=== PATIENT | female | born 1980 | race Caucasian/White ===

== ENCOUNTER 2017-11-23 06:01 | Observation (INO) | payer OTHER ==
[~2017-11-23] VITALS: Ht 149.9 cm; Wt 47.5 kg
[~2017-11-23 06:01] MED LIST: ALBU6.7H INH; BENZ100 PO; COMMODE 3-IN-11 MIS; HYDR-3583 PO; LIDO1ADH4 T-DERMAL; MAGN30S PO; METH500T3 PO; PERI PO; PRED20 PO; WALKER WHEELS/F1 MIS; XARE10TA PO
[2017-11-23] MEDS ORDERED: SODIUM CHLORID 0.9% 500 ML IV PRN (06:30)
[2017-11-23] MEDS ORDERED: CHLORHEXIDINE GLUCONATE 2 % 1 PACK (2 CLOTHS) TOPICAL PRN (06:30)
[2017-11-23] MEDS ORDERED: ceFAZolin 1,000 MG/NS 100 ML IV SCH ×2 (06:30)
[2017-11-23] MEDS ORDERED: VANCOMYCIN 1000 MG/NS 250 ML (for <70 kg) IV SCH ×2 (06:30)
[2017-11-23] MEDS ORDERED: CHLORHEXIDINE GLUCONATE 4% SOLN 120 ML BTL TOPICAL SCH (06:30)
[2017-11-23] MEDS ORDERED: METOPROLOL TARTRATE 25 MG TAB PO PRN (06:30)
[2017-11-23] MEDS ORDERED: INSULIN HUMAN REGULAR 1,000 UNITS/10 ML VIAL SQ PRN (06:30)
[2017-11-23] MEDS ORDERED: LACTATED RINGER'S 1000 ML IV PRN (06:30)
[2017-11-23] MEDS ORDERED: POVIDONE IODINE 5% (ANTISEPSIS KIT) 4 APPLICATIONS EACH NARE PRN (06:30)
[2017-11-23] MEDS ORDERED: VANCOMYCIN HCL 1000 MG VIAL ONE (06:42)
[2017-11-23] MEDS ORDERED: GENTAMICIN SULFATE 80 MG/2 ML VIAL ONE ×2 (06:42→06:58)
[2017-11-23] MEDS ORDERED: ceFAZolin 2 GM PREMIX 0 ML ONE (06:42)
[2017-11-23] MEDS ORDERED: MORPHINE SULFATE 4 MG/ML INJ IV PUSH PRN (08:30)
[2017-11-23] MEDS ORDERED: ONDANSETRON HCL 4 MG/2 ML VIAL IVP PRN (08:30)
--- NOTE | 2017-11-23 08:31 | PD.OP ---
cc: Tahir Quintana MD Operative Report Date of Surgery: Nov 23, 2017 Preoperative Diagnosis: Displaced right clavicle fracture with skin breakdown Postoperative Diagnosis: Procedure: Irrigation and debridement right clavicle, open reduction internal fixation right clavicle Anesthesia: Gen. Surgeon: Tahir Quintana Disability Attorney(s): AUDI Crawley PA-C The surgical procedure was assisted by my physician assistant director of financial aid. My P.A. presence was necessary throughout this case for the manipulation and positioning of the surgical extremity. My P.A. was assisting me throughout the duration of this procedure. The skill set of a physician assistant director of financial aid was medically necessary to complete this procedure. During the surgical case the instructor adjunct surgical technician was working at the back table and the physician assistant director of financial aid was directly assisting me. Operation and Findings: Patient was seen and evaluated preoperatively. Patient was initially found to have a mildly displaced clavicle fracture. She was treated nonoperatively for this injury. She has subsequently been in senior care. She presented to clinic last week with tenting of the skin and early skin breakdown. The risks and benefits of surgical and nonsurgical options were discussed in detail and informed consent was obtained for surgery. Patient was brought to the operating room and placed on or table. IV sedation and GETA were administered by anesthesiologist. Antibiotics were given prior to incision. Operative arm and shoulder were prepped with alcohol followed by Hibiclens and draped usual sterile fashion. Timeout procedure was performed. Procedure began with a 4 inch incision over the anterior clavicle. The area of skin opening was completely excised. Cultures were obtained from the fracture site. Subcutaneous tissue was dissected with Bovie. The fracture was now visualized. Soft tissue was retracted. Fracture was cleaned with curettes. At this point attention was turned towards debridement of the fracture and clavicle. A portion of the prominent clavicle fragment was excised with rongeurs. This bone was sent for culture. After thorough debridement of soft tissue and bone the wound was thoroughly irrigated with sterile saline. Next attention was turned to reduction and fixation of the fracture. Attention was now turned to reduction. Gentle traction was applied and fracture tenaculums were used to reduce the fracture. Fracture was manipulated to achieve excellent reduction. Multiplanar fluoroscopy confirmed well aligned fracture. K wires were used to hold provisional fixation. A ITS clavicle plate was selected. Plate was provisionally held in place K wires. 3.5 cortical screws were used to compress plate to bone. Fluoroscopy confirmed appropriate plate placement and fracture reduction. Multiple screws were placed on each side of the fracture. All Screws were predrilled and premeasured for appropriate length. Care was taken to avoid injury to neurovascular structures. Final fluoroscopy revealed well aligned fracture with well-placed hardware. Wound was thoroughly irrigated. Fascia was closed with #0 PDS, subcutaneous tissues closed with 3-0 PDS, and skin was closed with alyx. Sterile dressings were applied. Patient was placed into a sling. Patient was awakened and transferred to recovery in stable condition. Needle and sponge counts were correct. Tahir Quintana MD Nov 23, 2017 08:30
[2017-11-23] MEDS ORDERED: *morphine SULFATE 4 MG/ML PERIprocedure ONLY ONE ×2 (08:53→09:02)
[2017-11-23] MEDS: LACTATED RINGER'S 1000 ML INJ 1,000 ML IV SCH (08:55)
[2017-11-23] MEDS ORDERED: MIDAZOLAM HCL 2 MG/2 ML VIAL ONE (08:59)
[2017-11-23] MEDS ORDERED: ACETAMINOPHEN 1000 MG/100 ML 100 ML IV ONE (08:59)
[2017-11-23] MEDS ORDERED: *morphine SULFATE 10 MG/ML PERIprocedure ONLY ONE (09:10)
--- NOTE | 2017-11-23 09:40 | RADRPT ---
EXAM DATE/TIME: 11/23/2017 08:10 [facility] COMPARISON: No previous studies available for comparison. INDICATIONS : Open reduction internal fixation right clavicle. MEDICAL HISTORY : None. SURGICAL HISTORY : None. ENCOUNTER: Initial ACUITY: 1 day PAIN SCORE: Non-responsive. LOCATION: Right Clavicle FINDINGS: Images and recorded digitally in the operating room using C-arm during placement of a right clavicula r plate. CONCLUSION: Intraoperative images. Bradford Barnes MD on November 23, 2017 at 9:38 Board Certified Radiologist. This report was verified electronically.
[2017-11-23] MEDS ORDERED: DO NOT ADM ANY ANTICOAGULANT DRUGS PRN (09:45)
[2017-11-23] MEDS ORDERED: ERGOCALCIFEROL (VIT D2) 50,000 UNIT CAP PO SCH (10:00)
[2017-11-23] MEDS: ACETAMINOPHEN/HYDROcodone 325 MG/10 MG TAB PO PRN ×3 (11:32→20:48)
[2017-11-23] MEDS ORDERED: DEXAMETHASONE SOD PHOS 4 MG/ML VIAL IV ONE (12:00)
[2017-11-23] MEDS ORDERED: NEOSTIGMINE 5 MG/5 ML SYRINGE IV PUSH ONE (12:00)
[2017-11-23] MEDS ORDERED: ceFAZolin INJ 1,000 MG VIAL IV ONE (12:00)
[2017-11-23] MEDS ORDERED: PHENYLEPH/NS 1000 MCG/10 ML SYR IV ONE (12:00)
[2017-11-23] MEDS ORDERED: ONDANSETRON HCL 4 MG/2 ML VIAL IV ONE (12:00)
[2017-11-23] MEDS ORDERED: GLYCOPYRROLATE 1 MG/5 ML SYRINGE IV PUSH ONE (12:00)
[2017-11-23] MEDS ORDERED: PROPOFOL 200 MG/20 ML AMP IV ONE (12:00)
[2017-11-23] MEDS ORDERED: LIDOCAINE HCL 1% PF 5 ML SYRINGE OTHER ONE (12:00)
[2017-11-23] MEDS ORDERED: ePHEDrine/NS 25 MG/5 ML SYRINGE IV ONE (12:00)
[2017-11-23] MEDS ORDERED: ROCURONIUM INJ 50 MG/5 ML SYRINGE IV PUSH ONE (12:00)
[2017-11-23 13:00] VITALS: BP 109/62; PULSE 61; RESP 18; TEMP 97.3; O2SAT 98
[2017-11-23] MEDS: CALCIUM/VITAMIN D 250 MG/125 U TAB PO SCH ×3 (13:00→17:29)
[2017-11-23] MEDS: CHOLECALCIFEROL (VIT D3) 1000 UNIT TAB PO SCH (13:16)
[2017-11-23] MEDS: DOCUSATE SODIUM 50 MG/SENNA 8.6 MG TAB PO SCH ×2 (13:16→20:48)
[2017-11-23] MEDS: ceFAZolin 2 GM PREMIX 50 ML IV SCH ×2 (13:19→22:44)
[2017-11-23 16:00] VITALS: BP 108/62; PULSE 67; RESP 17; TEMP 97.5; O2SAT 99
[2017-11-23] MEDS: VANCOMYCIN INJ 1,000 MG in SODIUM CHLOR 0.9% 250 ML INJ 250 ML IV SCH (17:29)
[2017-11-23 20:07] VITALS: BP 105/57; PULSE 83; RESP 17; TEMP 97.6; O2SAT 98
[2017-11-24] VITALS (8 sets, daily range): BP systolic 94–154; BP diastolic 51–98; PULSE 71–88; RESP 17–20; TEMP 97.4–98.9; O2SAT 96–98
[2017-11-24] MEDS: ACETAMINOPHEN/HYDROcodone 325 MG/10 MG TAB PO PRN ×3 (02:24→19:17)
[2017-11-24] MEDS: ceFAZolin 2 GM PREMIX 50 ML IV SCH ×3 (05:21→22:43)
[2017-11-24] MEDS: VANCOMYCIN INJ 1,000 MG in SODIUM CHLOR 0.9% 250 ML INJ 250 ML IV SCH ×2 (05:22→18:00)
[2017-11-24] MEDS ORDERED: HYDR-3583 PO (06:14)
--- NOTE | 2017-11-24 06:33 | PD.ORT.PN ---
Subjective Subjective Remarks POD 1 s/p I&D with ORIF of right clavicle nurse reports significant drainage yesterday and last night. they changed and reinforced bandages. Objective Vitals Vital Signs Date Time Temp Pulse Resp B/P (MAP) Pulse Ox O2 Delivery O2 Flow Rate FiO2 11/24/17 03:28 18 11/24/17 03:15 98.0 84 17 97/53 (68) 97 11/24/17 00:45 97.8 86 17 154/98 (116) 96 11/23/17 22:01 Room Air 11/23/17 20:07 97.6 83 17 105/57 (73) 98 11/23/17 16:00 97.5 67 17 108/62 (77) 99 11/23/17 13:48 18 11/23/17 13:00 97.3 61 18 109/62 (78) 98 11/23/17 12:00 98.5 66 21 105/55 (72) 99 Room Air 11/23/17 11:00 63 20 109/64 (79) 100 Room Air 11/23/17 10:00 59 21 98/54 (69) 99 Room Air 11/23/17 09:30 60 16 101/58 (72) 97 Room Air 11/23/17 09:15 64 14 107/59 (75) 100 Room Air 11/23/17 09:05 Room Air 11/23/17 09:00 65 16 114/55 (74) 100 Nasal Cannula 2 11/23/17 08:50 97.5 70 17 111/57 (75) 100 Nasal Cannula 2 11/23/17 06:44 98.3 69 20 99/61 (74) 99 I/O 11/23/17 11/23/17 11/23/17 11/24/17 11/24/17 11/24/17 07:00 15:00 23:00 07:00 15:00 23:00 Intake Total 1770 ml 480 ml 480 ml Output Total 25 ml Balance 1745 ml 480 ml 480 ml Intake Oral 720 ml 480 ml 480 ml IV Total 250 ml Other 800 ml Output Estimated Blood Loss 25 ml # Voids 1 2 3 # Bowel Movements 0 0 Objective Remarks RUE: bulky dressing in place. clean and dry. intact. NVi distally. Assessment & Plan Assessment and Plan 1) Right Clavicle Fx s/p ORIF - POD 1 -NWB -maintain sling -plan for dressing change tomorrow. ok to change if becomes saturated -awaiting cultures -will need 6 weeks of Abx. will have to hold discharge til cultures finalized. Frank Jernigan/First Melba RÍOS Nov 24, 2017 06:33
[2017-11-24] MEDS: CHOLECALCIFEROL (VIT D3) 1000 UNIT TAB PO SCH (08:39)
[2017-11-24] MEDS: DOCUSATE SODIUM 50 MG/SENNA 8.6 MG TAB PO SCH ×2 (08:39→20:39)
[2017-11-24] MEDS: CALCIUM/VITAMIN D 250 MG/125 U TAB PO SCH ×3 (08:39→18:10)
[2017-11-24] MEDS: LACTATED RINGER'S 1000 ML INJ 1,000 ML IV SCH (10:40)
[2017-11-25] VITALS: BP 94/53; PULSE 73; RESP 16; TEMP 97.4; O2SAT 98
[2017-11-25] MEDS: ACETAMINOPHEN/HYDROcodone 325 MG/10 MG TAB PO PRN ×2 (03:35→08:42)
[2017-11-25] MEDS: VANCOMYCIN INJ 1,000 MG in SODIUM CHLOR 0.9% 250 ML INJ 250 ML IV SCH (05:57)
[2017-11-25] MEDS: ceFAZolin 2 GM PREMIX 50 ML IV SCH (05:57)
[2017-11-25 08:00] VITALS: BP 93/54; PULSE 67; RESP 16; TEMP 97.5; O2SAT 99
[2017-11-25] MEDS: CALCIUM/VITAMIN D 250 MG/125 U TAB PO SCH ×2 (08:42→12:50)
[2017-11-25] MEDS: CHOLECALCIFEROL (VIT D3) 1000 UNIT TAB PO SCH (08:42)
[2017-11-25] MEDS: DOCUSATE SODIUM 50 MG/SENNA 8.6 MG TAB PO SCH (08:42)
[2017-11-25] MEDS: LACTATED RINGER'S 1000 ML INJ 1,000 ML IV SCH (09:45)
[2017-11-25] MEDS ORDERED: CEPH-460 PO (11:19)
--- NOTE | 2017-11-25 11:23 | PD.ORT.PN ---
Subjective Subjective Remarks POD 2 s/p I&D with ORIF of right clavicle doing well. no complains or changes. out of bed on own. Objective Vitals Vital Signs Date Time Temp Pulse Resp B/P (MAP) Pulse Ox O2 Delivery O2 Flow Rate FiO2 11/25/17 08:00 97.5 67 16 93/54 (67) 99 11/25/17 00:00 97.4 73 16 94/53 (67) 98 11/24/17 20:20 97.9 88 20 98/60 (73) 98 11/24/17 20:00 97.9 88 20 98/60 (73) 98 11/24/17 17:00 97.8 72 20 112/55 (74) 98 11/24/17 16:00 97.5 78 20 123/61 (81) 98 11/24/17 12:00 98.9 71 20 94/51 (65) 96 I/O 18 11/24/17 11/24/17 11/25/17 11/25/17 11/25/17 07:00 15:00 23:00 07:00 15:00 23:00 Intake Total 580 ml 600 ml 500 ml Balance 580 ml 600 ml 500 ml Intake Oral 480 ml 600 ml 500 ml IV Total 100 ml # Voids 3 3 6 # Bowel Movements 0 Objective Remarks RUE: bulky dressing in place. clean and dry. intact. NVi distally. Assessment & Plan Assessment and Plan 1) Right Clavicle Fx s/p ORIF - POD 2 -NWB -maintain sling -plan for dressing change tomorrow. ok to change if becomes saturated -cultures show MSSA ans susceptible to keflex -DC back to senior care today on PO keflex 500mg QID x 6 weeks -daily dressing changes -f/u Jorge or MICHOACANO in 2 weeks Frank Jernigan/Senior Loan Officer PA Nov 25, 2017 11:23
--- NOTE | 2017-11-25 11:27 | HHI.DS ---
Discharge Summary Admission Date Nov 23, 2017 at 08:26 Discharge Date: Nov 25, 2017 Admitting Diagnosis Right Clavicle Fracture with infection Diagnosis: (1) Clavicle fracture Diagnosis: Principal ICD Codes: S42.009A - Fracture of unspecified part of unspecified clavicle, initial encounter for closed fracture Procedures ORIF with I&D right clavicle PE at Discharge RUE: bulky dressing in place. clean and dry. intact. NVi distally. Hospital Course Patient admitted to the hospital from a correctional facility after suffering a right clavicle fracture that was protruding through the skin. She had subsequent infection. She underwent an open reduction internal fixation with irrigation and debridement. She tolerated the procedure well and was admitted to [facility]. She was out of bed on postop day 0 with minimal discomfort. By postop day 2 cultures had grown and showed MSSA and was sensitive to Keflex. Daily dressing changes have begun. She will remain nonweightbearing in a sling on the right arm. She will daily dressing changes with Xeroform and Primapore. She will be started on Keflex 500 mg 4 times daily and she will maintain this regimen for 6 weeks. She will follow-up with Dr. Patel or his PA in 2 weeks. She will be discharged today. She is hemodynamically stable and fit for discharge Pt Condition on Discharge: Good Discharge Disposition: Dis to Court [employer] En[employer] Discharge Instructions Diet Instructions: As Tolerated, No Restrictions Activities You Can Perform: Non Weight Bearing Follow up Referrals: Orthopedics - 2 Weeks @ [facility] with Tahir Patel MD New Medications: Cephalexin (Keflex) 500 Mg Cap 500 MG PO Q6H for Infection, #180 CAP 0 Refills Hydrocodone-Acetaminophen (Hydrocodone-Acetaminophen) 10-325 mg Tab 1 TAB PO Q4H PRN for PAIN, #60 TAB 0 Refills Frank Jernigan/Barley Steeper PA Nov 25, 2017 11:27
== END 2017-11-25 13:44 ==
LOC: HSDC 06:01 → HSDI 08:26 → N06B 12:39
PROVIDERS: ADMIT Orthopaedic Surgery Orthopaedic Trauma; ATTEND Orthopaedic Surgery Orthopaedic Trauma
DX: S42.001A Fracture of unspecified part of right clavicle, initial encounter for closed fracture (principal); F17.200 Nicotine dependence, unspecified, uncomplicated; X58.XXXA Exposure to other specified factors, initial encounter
CPT/HCPCS: 00450; 11042; 23515; 73000; 76000; 86403; 87015; 87070; 87102; 87116; 87147; 87176; 87186; 87205; 87206; 96365; 96366; 96367; 96368; 96375; 96376; C1713; G0378; J0131; J0690; J1100; J1580; J2250; J2270; J2370; J2405; J2710; J3010; J3370; J7050; J7120